=== PATIENT | female | born 1995 | race Caucasian/White ===

== ENCOUNTER 2020-10-10 16:11 | Emergency (ER) | payer OTHER ==
[~2020-10-10] VITALS: Ht 177.8 cm; Wt 72.2 kg
[~2020-10-10 16:11] MED LIST: FERR325T81 PO
--- NOTE | 2020-10-10 16:35 | REP ---
INDICATION: injury. COMPARISON: None. TECHNIQUE: Four views of the left ankle. FINDINGS: Four views of the left ankle demonstrate intact ankle mortise. There is plantar calcaneal spurring. No fracture or subluxation is seen. A normal os trigonum is visible. IMPRESSION: No fracture seen. Negative views of the left ankle. <Electronically signed by Hiram Kirkpatrick > 10/10/20 [id number]
[2020-10-10 17:41] VITALS: BP 131/69
== END 2020-10-10 17:41 | disposition home or self-care (01) ==
LOC: M ED 16:11
DX: S93.401A Sprain of unspecified ligament of right ankle, initial encounter (principal); X58.XXXA Exposure to other specified factors, initial encounter; Y92.89 Other specified places as the place of occurrence of the external cause; Y93.02 Activity, running; Y99.1 Military activity; Z79.899 Other long term (current) drug therapy

== ENCOUNTER 2020-12-12 12:57 | Day surgery (SDC) | payer OTHER ==
[~2020-12-12] VITALS: Ht 177.8 cm; Wt 72.6 kg
[~2020-12-12 12:57] MED LIST changes: +IBUP200C25 PO; +LR 1,000 ML IV ONE
[2020-12-12 13:41] LABS: HEMATOCRIT 45.1 % (36.0-47.0); HEMOGLOBIN 14.9 g/dl (12.0-15.5); MEAN CORPUSCULAR HEMOGLOBIN 31.1 pg (27.0-33.0); MEAN CORPUSCULAR VOLUME 94.2 fl (80.0-96.0); PLATELET COUNT, AUTOMATED 323 10^3/uL (150-450); RED BLOOD COUNT 4.79 10^6/uL (4.00-5.40); WHITE BLOOD COUNT 6.3 10^3/uL (4.0-10.0)
[2020-12-12 14:09] LABS: APPEARANCE, URINE HAZY (CLEAR); BACTERIA, URINE AUTO 1+ (NEGATIVE); BILIRUBIN, URINE AUTO NEGATIVE (NEGATIVE); BLOOD, URINE BLOOD NEGATIVE (NEGATIVE); COLOR, URINE YELLOW (YELLOW); GLUCOSE, URINE (UA) AUTO NEGATIVE (NEGATIVE); KETONE, URINE AUTO NEGATIVE (NEGATIVE); LEUKOCYTE ESTERASE, URINE AUTO TRACE (NEGATIVE); MUCUS, URINE SMALL (NEGATIVE); NITRITE, URINE AUTO NEGATIVE (NEGATIVE); PROTEIN, URINE AUTO NEGATIVE (NEGATIVE); RBC, URINE AUTO 2 /HPF (0-3); SPECIFIC GRAVITY URINE AUTO 1.014 (1.002-1.035); SQUAMOUS EPITHELIAL CELL UR AU 2 /HPF (0-6); UROBILINOGEN, URINE AUTO 0.2 mg/dL (0.0-2.0); WBC, URINE AUTO 1 /HPF (0-3)
[2020-12-12] MEDS ORDERED: propofoL 200 MG/20 ML VIAL As Ordered ONE (14:31)
[2020-12-12] MEDS ORDERED: MIDAZOLAM INJ 2MG/2ML VIAL (J2250 PER 1MG) As Ordered ONE (14:32)
[2020-12-12] MEDS ORDERED: LIDOCAINE 2% 100MG/5ML SDV (FOR ANES.) As Ordered ONE (14:32)
[2020-12-12 16:20] VITALS: BP 110/63
[2020-12-12] MEDS ORDERED: LR 1,000 ML IV SCH (17:00)
[2020-12-12] MEDS ORDERED: fentaNYL 100 MCG/2 ML INJECTION (J3010) IV PRN (17:00)
[2020-12-12] MEDS ORDERED: ONDANSETRON 4MG/2ML VIAL IV PRN (17:00)
[2020-12-12] MEDS ORDERED: oxyCODONE 5MG TAB PO PRN (17:00)
--- NOTE | 2020-12-12 21:29 | ROOPDOC ---
[facility] Report Of Operation Report of Operation DATE OF PROCEDURE: 12/12/20 PREPROCEDURE DIAGNOSES: 1. Pelvic pain 2. Intolerance of pelvic exam in office POSTPROCEDURE DIAGNOSES: 1. Pelvic pain 2. Intolerance of pelvic exam in office PROCEDURE: 1. Examination under anesthesia 2. Pap smear 3. HPV cotest 4. Pelvic Ultrasound SURGEON: Aakash Muir DO ANESTHESIA: MAC ESTIMATED BLOOD LOSS: Approximately 2 mL. FLUIDS: 400ml LR URINE OUTPUT: 0ml as patient voided prior to moving to the operating room` COMPLICATIONS: None FINDINGS: normal hymenal ring intact, normal-appearing cervix. Pelvic ultrasound revealed small amount of pelvic free fluid. Normal anteverted uterus with endometrial stripe homogeneous at 0.8cm. PROCEDURE NOTE: The risks, benefits, indications and alternatives of the procedure were reviewed with the patient and informed consent was obtained. The patient was taken to the operating room where MAC anesthesia was obtained without difficulty. The patient was then placed in the low lithotomy position using Kev Stirrups. A timeout was performed and the patient's identity and planned procedure were verified with the operative team. An exam under anesthesia was then performed notable for a normal intact hymenal ring. A speculum was placed in the vagina and a pap smear completed. A separate HPV test was obtained from the endocervix. Upon removal of the speculum, the hymenal ring was stretched to allow patient to place tampons in the future per her request. A pelvic ultrasound was then performed. A normal anteverted uterus with no masses was identified with homogeneous endometrial stripe of 0.8cm. No adnexal masses were appreciated with normal ovaries bilaterally. All instruments were removed from the vagina and a surgical count was correct x2. The patient was awoken from anesthesia and taken to the PACU in stable condition. Patient tolerating the procedure well. AAKASH MUIR DO Dec 12, 2020 21:30
== END 2020-12-12 16:25 | disposition home or self-care (01) ==
LOC: M SDC 12:57
DX: R10.2 Pelvic and perineal pain (principal); Z12.4 Encounter for screening for malignant neoplasm of cervix; D64.9 Anemia, unspecified
CPT/HCPCS: 36415; 57410; 81001; 81025; 85027; 86850; 86900; 86901; 87624; G0123; J2250